=== PATIENT | male | born 1995 | race Caucasian/White ===

== ENCOUNTER 2016-08-19 18:45 | Emergency (ER) | payer BC ==
[2016-08-19 18:52] VITALS: BP 130/39
[2016-08-19] MEDS ORDERED: Levofloxacin TAB* 250 MG PO ONE (20:47)
--- NOTE | 2016-08-19 22:41 | UC ---
Throat Pain/Nasal Jabari HPI - HPI Summary HPI Summary: Patient is an otherwise healthy 21yo M who presents to with CC of left sided sinus pressure, tooth pain and jaw pain. He was seen in [facility] after 2 visits to his local [facility] for similar complaints. He was dx there through CT scan with severe ethmoid and maxillary sinusitis with mucosal thickening, and partial obstruction. He was given Augmentin for the third time in a 3 month period with no improvement of symptoms. He was also given prednisone each time with last dose of 100mg twice daily for 10 days. He states this kept him up at night, but he felt some improvement with symptoms after many days on the medications. He presents today with the same symptoms and is requesting more abx. He states he feels "off" and hasn't been well since going to [facility] 4 months ago, however he gets sick every year when he goes. He also notes to wisdom tooth extraction in September 2015 which had complications on the left side of the jaw. Denies previous sinusitis or other health problems prior to Apr this year. He has not been referred to ENT or given other abx as of yet. - History of Current Complaint Chief Complaint: UCRespiratory Stated Complaint: SINUS PRESSURE,PAIN Time Seen by Provider: 08/19/16 19:55 Hx Obtained From: Patient Onset/Duration: Gradual Onset Severity: Moderate Pain Intensity: 4 Pain Scale Used: 0-10 Numeric Associated Signs & Symptoms: Positive: Sinus Discomfort, Nasal Discharge - Epiglottits Risk Factors Epiglottis Risk Factors: Negative - Allergies/Home Medications Allergies/Adverse Reactions: Allergies Allergy/AdvReac Type Severity Reaction Status Date / Time POLLEN Allergy Sneezing Uncoded 08/19/16 19:58 PMH/Surg Hx/FS Hx/Imm Hx Previously Healthy: Yes - Surgical History Surgical History: Yes Surgery Procedure, Year, and Place: oral surgery - Family History Known Family History: Positive: Unknown - Social History Occupation: Unemployed Lives: With Family Alcohol Use: None Substance Use Type: None Smoking Status (MU): Never Smoked Tobacco - Immunization History Vaccination Up to Date: Yes Review of Systems Constitutional: Negative Skin: Negative Eyes: Negative ENT: Dental Pain, Nasal Discharge Respiratory: Negative Motor: Negative Neurovascular: Negative Musculoskeletal: Negative Neurological: Negative Psychological: Negative All Other Systems Reviewed And Are Negative: Yes Physical Exam Triage Information Reviewed: Yes Appearance: Well-Appearing, No Pain Distress, Well-Nourished Vital Signs: Initial Vital Signs Temp 98.8 F 08/19/16 18:51 Pulse 74 08/19/16 18:51 Resp 16 08/19/16 18:51 BP 130/39 08/19/16 18:51 Pulse Ox 97 08/19/16 18:51 Vital Signs Reviewed: Yes Eye Exam: Normal Eyes: Positive: Conjunctiva Clear ENT: Positive: Hearing grossly normal, Pharynx normal, Nasal congestion, Nasal drainage, TMs normal, Other: - maxillary, frontal sinus pressure on percussion Dental Exam: Normal Neck exam: Normal Neck: Positive: Supple, Nontender, No Lymphadenopathy Respiratory Exam: Normal Respiratory: Positive: Chest non-tender Cardiovascular Exam: Normal Cardiovascular: Positive: RRR Neurological Exam: Normal Neurological: Positive: Alert Psychological: Positive: Normal Response To Family, Age Appropriate Behavior Skin Exam: Normal Throat Pain/Nasal Course/Dx - Course Course Of Treatment: Patient presents with 4 month hx of sinusitis with 3 bouts of failed antibiotics. He was placed on Augmentin 3 x without success. He had also been placed on Prednisone 100mg twice daily for 10 days with slight improvement. Provider called [facility] to receive CT results of past scan. Severe sinusitis was noted in ethmoid and maxillary sinus with obstruction. Advised patient to see ENT and referred to Dr Virgen. Treatment options explained. Prednisone 50mg for 5 days, betamethasone nasal steroid and will rx for levofloxacin 500mg once daily for 10 days d/t possible failure of augmentin. He agrees to call w for appt. No CT scan available in today. - Differential Dx/Diagnosis Differential Diagnosis/HQI/PQRI: Pharyngitis, Sinusitis Provider Diagnoses: Chronic Sinusitis Discharge - Discharge Plan Condition: Stable Disposition: HOME Prescriptions: Beclomethasone NASAL SPRAY(NF) [Beconase AQ NASAL SPRAY(NF)] 2 puff .SEE ORDER SEE INSTRUCTIONS #1 btl Levofloxacin TAB* [Levaquin 500 Tab*] 500 mg PO DAILY #10 tab predniSONE TAB* [Deltasone TAB*] 50 mg PO DAILY #5 tab Patient Education Materials: Rhinosinusitis (ED), Warm Compress or Soak (ED) Referrals: Rajiv Thao MD [Medical Doctor] - Skezas,Alex, MD [Primary Care Provider] - Jordon Virgen MD [Medical Doctor] - Additional Instructions: Follow up with Dr. Virgen or Dr. Jones Continue on Levofloxacin once per day for 10 days Beclamethasone twice in each nostril two times daily Prednisone 50mg in the AM for 5 days Warm soaks over the area may help
[2016-08-20] MEDS ORDERED: Fluticasone NASAL SPRAY 50MCG* 16 gm SPRAY BTL BOTH NARES SCH (09:00)
== END 2016-08-19 21:05 | disposition home or self-care (01) ==
LOC: UCEAST 18:45
DX: J32.9 Chronic sinusitis, unspecified (principal)
CPT/HCPCS: 99212; A9270-GY; G0463